=== PATIENT | female | born 1970 | race Caucasian/White ===

== ENCOUNTER 2016-11-14 09:24 | Outpatient (CLI) | payer MEDICAID ==
[~2016-11-14] VITALS: Ht 162.6 cm; Wt 73.9 kg
[~2016-11-14 09:24] MED LIST: BEN50 PO; HC1C30 TOP; IBUP-1542 PO
[2016-11-14 09:42] VITALS: Ht 162.6 cm; Wt 73.9 kg
[2016-11-14] MEDS ORDERED: PRENAT PO (09:46)
[2016-11-14] MEDS ORDERED: GLYB1.252 PO (09:46)
[2016-11-14] MEDS ORDERED: METF500T4 PO (09:46)
[2016-11-14 10:11] LABS: ADD SCAN DIFF NO
[2016-11-14 10:15] LABS: ADD UMIC YES; URINE BILIRUBIN (Dip) NEGATIVE (NEGATIVE); URINE BLOOD (Dip) TRACE (NEGATIVE); URINE COLOR LT. YELLOW (YELLOW); URINE GLUCOSE (Dip) NEGATIVE (NEGATIVE); URINE KETONES (Dip) NEGATIVE (NEGATIVE); URINE LEUKOCYTE ESTERASE (Dip) NEGATIVE (NEGATIVE); URINE NITRITE (Dip) NEGATIVE (NEGATIVE); URINE TOTAL PROTEIN (Dip) NEGATIVE (NEGATIVE); URINE UROBILINOGEN (Dip) 0.2 E.U./dL (0.1-1.0)
[2016-11-14 10:17] LABS: BASOPHILS % 0.3 % (0.0-2.0); EOSINOPHILS # 0.1 10^3/ul (0.0-0.5); EOSINOPHILS % 1.5 % (0.0-7.0); HEMATOCRIT 33.1 % (37.0-47.0); HEMOGLOBIN 10.5 g/dl (12.0-16.0); LYMPHOCYTES # 2.6 10^3/ul (0.8-2.9); LYMPHOCYTES % 29.4 % (15.0-51.0); MEAN CORPUSCULAR HEMOGLOBIN 25.7 pg (29.0-33.0); MEAN CORPUSCULAR HGB CONC 31.7 g/dl (32.0-37.0); MEAN CORPUSCULAR VOLUME 80.9 fl (82.0-101.0); MEAN PLATELET VOLUME 10.6 fl (7.4-10.4); MONOCYTE # 0.6 10^3/ul (0.3-0.9); MONOCYTES % 6.2 % (0.0-11.0); NEUTROPHIL # 5.5 10^3/ul (1.6-7.5); NEUTROPHILS % 61.6 % (39.0-77.0); PLATELET COUNT 233 10^3/UL (140-415); RED BLOOD COUNT 4.09 10^6/ul (4.20-5.40); RED CELL DISTRIBUTION WIDTH 16.6 % (11.5-14.5); WHITE BLOOD COUNT 8.9 10^3/ul (4.8-10.8)
[2016-11-14 10:23] LABS: BACTERIA,URINE MANY; SQUAMOUS EPITHELIAL CELL,UR MANY; URINE RBCS NONE SEEN /HPF (0)
[2016-11-14 10:33] LABS: INR 0.86; PARTIAL THROMBOPLASTIN TIME 26.9 Sec (25.0-35.0); PROTIME 11.7 Sec (12.2-14.2); PT RATIO 0.9
[2016-11-14 10:35] LABS: ALBUMIN 3.3 g/dl (3.3-4.9)
[2016-11-14 10:36] LABS: POTASSIUM 4.2 mmol/L (3.5-5.1)
[2016-11-14 10:38] LABS: ALBUMIN/GLOBULIN RATIO 0.97; BILIRUBIN,INDIRECT 0.1 mg/dl (0-1.1); BILIRUBIN,TOTAL 0.1 mg/dl (0.2-1.3); CREATININE 0.48 mg/dl (0.44-1.00); TOTAL PROTEIN 6.7 g/dl (6.1-8.1)
[2016-11-14 10:39] LABS: CALCIUM 8.9 mg/dl (8.4-10.2); URIC ACID 5.7 mg/dl (3.1-7.9)
--- NOTE | 2016-11-14 10:47 | RADRPT ---
PROCEDURE: OB ultrasound for biophysical profile CLINICAL INDICATION: labor TECHNIQUE: Multiple sonographic images of the pelvis were obtained. Transabdominal views of the g ravid uterus are available for review. The images were reviewed on a PACS workstation. COMPARISON: None FINDINGS: breathing movement = 2/2 tone = 2/2 motion = 2/2 CORRIE = 2/2 CORRIE = 14.4 cm Single live intrauterine with cardiac activity of 146 bpm. position is cephal ic. The placenta is posterior. IMPRESSION: 1. Single live intrauterine gestation. 2. Biophysical profile = 8/8. 3. CORRIE = 14.4 cm. RPTAT: HH .Lety Araujo MD, MD Date Time Electronically viewed and signed by .Lety Araujo MD, on 11/14/2016 10:47 .G/
--- NOTE | 2016-11-14 10:49 | RADRPT ---
PROCEDURE: US OB. CLINICAL INDICATION: Size and dates TECHNIQUE: Multiple sonographic images of the pelvis were obtained. Transabdominal imaging only w as performed. The images were reviewed on a PACS workstation. COMPARISON: No prior studies are available for comparison. FINDINGS: There is a single live intrauterine gestation. Cardiac activity is present with 132 beats per minut e. position is cephalic. Measurements were made in order to determine age. The results are as follows: BPD = 8.71 cm HC = 31.20 cm AC = 32.13 cm FL = 6.16 cm. Estimated gestational age of approximately 34 weeks 4 days. The estimated date of delivery is 12/22/2016. The EFW = 2512 g, 43.6 %ile. The placenta is posterior. There is no evidence for an abruption or placenta previa. There are no adnexal masses. IMPRESSION: 1. Single live intrauterine gestation of approximately 34 weeks 4 days, by ultrasound criteria. 2. The estimated date of delivery is 12/22/2016. 3. The estimated weight is 2512 g, 43.6 %ile. RPTAT: HH .Lety Araujo MD, Date Time Electronically viewed and signed by .Lety Araujo MD, on 11/14/2016 10:49 .G/
[2016-11-14] MEDS ORDERED: LACTATED RINGER'S 1,000 ML IV SCH (11:30)
--- NOTE | 2016-11-14 13:19 | RADRPT ---
PROCEDURE: OB ultrasound, cervical length ultrasound CLINICAL INDICATION: Pre-term labor. TECHNIQUE: Trans-vaginal imaging of the cervical canal was performed utilizing parsons-scale imaging. Sagittal and transverse images were obtained. The images were reviewed on a PACS workstation. COMPARISON: OB ultrasound 11/14/2016 FINDINGS: A few small Nabothian cysts are noted. The cervix is closed with a length of 3.16 cm. IMPRESSION: The cervix is closed with a length of 3.16 cm. RPTAT: AADD .Alexander Hurtado MD, MD Date Time Electronically viewed and signed by .Alexander Hurtado MD, MD on 11/14/2016 13:19 .B/
--- NOTE | 2016-11-14 15:20 | PN ---
DATE: SUBJECTIVE: Patient is a 46-year-old, 34 weeks, with elevation of blood pressure. Patient has no c omplaints. OBJECTIVE: Vital signs are stable. Patient at 130s/80s. Exam is within normal limits. Vital sign s within normal limits. LAB WORK: Ultrasound within normal limits. ASSESSMENT: This is a 46-year-old with mildly elevated blood pressure. Patient is stable. , patient will be discharged home. 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 Dictated By: AMALIA LOPEZ MD /NTS Conf#: [id number] DID#: [id number]
== END 2016-11-14 14:52 | disposition home or self-care (01) ==
LOC: OBT 09:24 → L-D 09:25 → OBT 14:52
PROVIDERS: ATTEND Obstetrics & Gynecology
DX: O26.893 Other specified pregnancy related conditions, third trimester (principal); R03.0 Elevated blood-pressure reading, without diagnosis of hypertension; O60.03 Preterm labor without delivery, third trimester; Z3A.34 34 weeks gestation of pregnancy
CPT/HCPCS: 36415; 76815; 76817; 76818; 80053; 81001; 82947; 84560; 85025; 85384; 85610; 85730; J7120; Z7500; 81003; G0463

== ENCOUNTER 2016-11-24 10:18 | Outpatient (CLI) | payer MEDICAID ==
[~2016-11-24] VITALS: Ht 160 cm; Wt 73.8 kg
[~2016-11-24 10:18] MED LIST changes: -BEN50 PO; +GLYB1.252 PO; -HC1C30 TOP; -IBUP-1542 PO; +METF500T4 PO; +PRENAT PO
[2016-11-24 10:25] VITALS: BP 130/75; PULSE 81; RESP 16; Ht 160 cm; Wt 73.8 kg
--- NOTE | 2016-11-24 13:42 | TRIAGE ---
OB Triage Datetime Report Generated by CPN: 11/24/2016 13:42 Datetime: 11/24/2016 13:00 Labor Evaluation Frequency: OCCAS Monitor Mode: External Duration (sec)2399: 60-100 Quality: Mild Pattern: Normal: <= 5 Contractions in 10 Minutes Resting Tone [place]: Relaxed Heart Rate FHR Baseline Rate: 130 Monitor Mode: External US FHR Baseline Changes: No Baseline Change Variability: Moderate 6-25 bpm Accelerations: 15X15 Decelerations: None Category: Category I Datetime: 11/24/2016 12:00 Labor Evaluation Frequency: OCCAS Monitor Mode: External Duration (sec)2399: 50-120 Quality: Mild Pattern: Normal: <= 5 Contractions in 10 Minutes Resting Tone [place]: Relaxed Heart Rate FHR Baseline Rate: 135 Monitor Mode: External US FHR Baseline Changes: No Baseline Change Variability: Moderate 6-25 bpm Accelerations: 15X15 Decelerations: None Category: Category I Datetime: 11/24/2016 10:59 Labor Evaluation Frequency: 2 NOTED Monitor Mode: External Duration (sec)2399: 60-90 Pattern: Normal: <= 5 Contractions in 10 Minutes Resting Tone [place]: Relaxed Contraction Comments: PT DENIES ANY YEIMI'S Heart Rate FHR Baseline Rate: 130 Monitor Mode: External US FHR Baseline Changes: No Baseline Change Variability: Moderate 6-25 bpm Accelerations: 15X15 Decelerations: None Category: Category I Datetime: 11/24/2016 10:37 Stage of : OB Triage Bedside Blood Glucose: 109 Datetime: 11/24/2016 10:23 Assessment Type: Triage Maternal Assessment Level of Consciousness: Fully Conscious DTR's/Clonus: DTRs 2+; No Clonus Headache: Denies Blurred Vision: No Respiratory Effort: Unlabored; Regular Rhythm; Equal Expansion Breath Sounds, Left: Clear and Equal Breath Sounds, Right: Clear and Equal Nausea/Vomiting: Denies RUQ Epigastric Pain: Denies Lower Extremities Edema: None Degree: None Upper Extremities Edema: None Degree: None Facial Edema: None Fall Risk Assessment History of Falling: (0) No Secondary Diagnosis: (0) No Ambulatory Aid: (0) Bedrest/Nurse Assist IV Therapy: (0) No Gait: (0) Normal/Bedrest/Immobile Mental Status: (0) Oriented to Own Ability Fall Score: 0 Fall Risk Score Definition: No Risk: No action required Datetime: 11/24/2016 10:21 Time of Arrival: 11/24/2016 10:10 EGA: 36.2 Arrived By: Ambulatory Arrived From: Dr. Elder Chief Complaint: CAME FROM NST DUE TO CATEGORY 2 STRIP. NON REACTIVE AND FASTING BLODD SUGAR OF 19 7 Movement: Present Contractions: Denies/Absent Rupture of Membranes: Denies Vaginal Bleeding: None Vaginal Discharge: Denies Recent Sexual Intercouse: Denies Abdominal Trauma: Not Applicable Patient Complaints: Other Time Provider Notified: 11/24/2016 10:46 Provider Notified: [facility] Initial Plan: NST/OBSERVATION Datetime: 11/14/2016 14:38 Labor Evaluation Frequency: OCCAS Monitor Mode: External Duration (sec)2399: 60-80 Quality: Mild Pattern: Normal: <= 5 Contractions in 10 Minutes Resting Tone [place]: Relaxed Heart Rate FHR Baseline Rate: 135 Monitor Mode: External US Variability: Moderate 6-25 bpm Accelerations: 10X10 Decelerations: None Category: Category I Pain Assessment Pain Scale: 0 Pain Presence: None/Denies Pain Type: N/A Pain Goal: 3 Pain Relief Measures: Comfort Measures Datetime: 11/14/2016 14:34 Stage of : OB Triage Datetime: 11/14/2016 13:17 Labor Evaluation Frequency: 0 Monitor Mode: External Resting Tone [place]: Relaxed Heart Rate FHR Baseline Rate: 135 Monitor Mode: External US Variability: Moderate 6-25 bpm Decelerations: None Category: Category I Pain Assessment Pain Scale: 0 Pain Presence: None/Denies Pain Type: N/A Pain Goal: 3 Pain Relief Measures: Comfort Measures Datetime: 11/14/2016 11:38 Labor Evaluation Frequency: 12-15 Monitor Mode: External Duration (sec)2399: 60-70 Quality: Mild Pattern: Normal: <= 5 Contractions in 10 Minutes Resting Tone [place]: Relaxed Contraction Comments: DENIES FEELING Heart Rate FHR Baseline Rate: 135 Monitor Mode: External US Variability: Moderate 6-25 bpm Accelerations: 10X10 Decelerations: None Category: Category I Pain Assessment Pain Scale: 0 Pain Presence: None/Denies Pain Type: N/A Pain Goal: 3 Pain Relief Measures: Comfort Measures Datetime: 11/14/2016 11:19 Stage of : OB Triage Datetime: 11/14/2016 10:24 Labor Evaluation Frequency: 10-12 Monitor Mode: External Duration (sec)2399: 70-80 Quality: Mild Pattern: Normal: <= 5 Contractions in 10 Minutes Resting Tone [place]: Relaxed Heart Rate FHR Baseline Rate: 130 Monitor Mode: External US Variability: Moderate 6-25 bpm Accelerations: 10X10 Decelerations: None Category: Category I Pain Assessment Pain Scale: 0 Pain Presence: None/Denies Pain Type: N/A Pain Goal: 3 Pain Relief Measures: Comfort Measures Datetime: 11/14/2016 09:38 Stage of : OB Triage Assessment Type: Triage Maternal Assessment Level of Consciousness: Fully Conscious DTR's/Clonus: DTRs 2+; No Clonus Headache: Denies Blurred Vision: No Respiratory Effort: Unlabored; Regular Rhythm; Equal Expansion Breath Sounds, Left: Clear and Equal Breath Sounds, Right: Clear and Equal Nausea/Vomiting: Denies RUQ Epigastric Pain: Denies Lower Extremities Edema: None Degree: None Upper Extremities Edema: None Degree: None Facial Edema: None Temperature Route: Axillary Fall Risk Assessment History of Falling: (0) No Secondary Diagnosis: (0) No Ambulatory Aid: (0) Bedrest/Nurse Assist IV Therapy: (0) No Gait: (0) Normal/Bedrest/Immobile Mental Status: (0) Oriented to Own Ability Fall Score: 0 Fall Risk Score Definition: No Risk: No action required Labor Evaluation Frequency: 0 Monitor Mode: External Resting Tone [place]: Relaxed Heart Rate FHR Baseline Rate: 125 Monitor Mode: External US Variability: Moderate 6-25 bpm Decelerations: None Category: Category I Pain Assessment Pain Scale: 0 Pain Presence: None/Denies Pain Type: N/A Pain Goal: 3 Pain Relief Measures: Comfort Measures Datetime: 11/14/2016 09:36 Time of Arrival: 11/14/2016 09:25 EGA: 34.6 Arrived By: Ambulatory Arrived From: Other Unit in Hospital Chief Complaint: FROM NST TO R/O PTL AND PIH, DENIES BLEEDING OR LEAKING OF FLUID Movement: Present Contractions: Denies/Absent Rupture of Membranes: Denies Vaginal Bleeding: None Vaginal Discharge: Denies Recent Sexual Intercouse: Denies Abdominal Trauma: Not Applicable Patient Complaints: Headache Time Provider Notified: 11/14/2016 11:19 Provider Notified: [facility] Initial Plan: MONITOR, BPP, PIH PANEL, EFW
--- NOTE | 2016-11-25 00:56 | NSTRPT ---
NST Information Datetime Report Generated by CPN: 11/25/2016 00:56 Datetime: 11/24/2016 08:17 NST Information EGA: 36.2 Test Number: 10 Time on Monitor: 11/24/2016 08:41 Time off Monitor: 11/24/2016 09:41 NST Duration (Min): 60 Reason for NST: Diabetes Mellitus; Other Reason for NST Other: A2DM Test and Monitor Explained: Monitor Explained; Test Explained; Verbalized Understanding; Breastfee ding Info Given Temp : 98.1 Pulse: 76 Resp: 18 SBP: 126 DBP: 86 Test Evaluation NST Interventions: PO Hydration; Food Given; Reposition Patient Patient States Movement: Present Contraction Frequency: 0 FHR Baseline : 135 Variability: Minimal - <=5bpm Accelerations: 15X15 Decelerations: Variable FHR Category: Category II NST Results: Questionable Provider Notified: Dr Mccullough Comments: To u/s. CORRIE 15.4cm. TRANSVERSE. FBS 198. Pt states she has a cold and all familiy member s at home are sick. c/o headache. 914-Report called to Dr Schultz, recommends ext efm. 919-Report to Dr Mccullough, inc Dr Schultz's rec ommendation. Order received to send to triage. 931-Report to Jonathan, in Triage. POC explained t o pt, states understanding and denies further questions at this time. 45-Pt to triage, with follo w up NST appt. Electronically Signed By E-Signature: with User ID: [id number] Datetime: 11/21/2016 08:28 NST Information EGA: 35.6 NST Duration (Min): 32 Datetime: 11/18/2016 08:39 NST Information EGA: 35.3 NST Duration (Min): 31 Datetime: 11/14/2016 08:19 NST Information EGA: 34.6 NST Duration (Min): 101 Datetime: 11/11/2016 10:31 NST Information EGA: 34.3 NST Duration (Min): 28 Datetime: 11/07/2016 08:39 NST Information EGA: 33.6 NST Duration (Min): 32 Datetime: 11/04/2016 10:14 NST Information EGA: 33.3 NST Duration (Min): 51 Datetime: 11/01/2016 08:59 NST Information EGA: 33.0 NST Duration (Min): 22 Datetime: 10/28/2016 10:21 NST Information EGA: 32.3 NST Duration (Min): 23 Datetime: 10/25/2016 09:03 NST Information EGA: 32.0 Datetime: 10/25/2016 08:56 NST Duration (Min): 35
--- NOTE | 2016-11-25 00:59 | NSTRPT ---
NST Information Datetime Report Generated by CPN: 11/25/2016 00:59 Datetime: 11/18/2016 08:39 Electronically Signed By E-Signature: with User ID: [id number]
== END 2016-11-24 13:41 | disposition home or self-care (01) ==
LOC: OBT 10:18 → L-D 10:19 → OBT 13:41
PROVIDERS: ATTEND Obstetrics & Gynecology
DX: O24.419 Gestational diabetes mellitus in pregnancy, unspecified control (principal); O09.513 Supervision of elderly primigravida, third trimester; Z3A.36 36 weeks gestation of pregnancy
CPT/HCPCS: 82962; Z7500; G0463

== ENCOUNTER 2016-12-02 23:35 | Outpatient (CLI) | payer MEDICAID ==
[~2016-12-02] VITALS: Ht 157.5 cm; Wt 74.2 kg
[2016-12-03 00:14] VITALS: Ht 157.5 cm; Wt 74.2 kg
[2016-12-03 00:15] VITALS: BP 152/95; PULSE 71; RESP 20
[2016-12-03 01:34] LABS: ADD SCAN DIFF NO
[2016-12-03 01:41] LABS: BASOPHILS % 0.3 % (0.0-2.0); EOSINOPHILS # 0.1 10^3/ul (0.0-0.5); EOSINOPHILS % 1.4 % (0.0-7.0); HEMATOCRIT 33.3 % (37.0-47.0); HEMOGLOBIN 10.7 g/dl (12.0-16.0); LYMPHOCYTES # 3.4 10^3/ul (0.8-2.9); LYMPHOCYTES % 38.8 % (15.0-51.0); MEAN CORPUSCULAR HEMOGLOBIN 25.8 pg (29.0-33.0); MEAN CORPUSCULAR HGB CONC 32.1 g/dl (32.0-37.0); MEAN CORPUSCULAR VOLUME 80.4 fl (82.0-101.0); MEAN PLATELET VOLUME 10.4 fl (7.4-10.4); MONOCYTE # 0.5 10^3/ul (0.3-0.9); MONOCYTES % 6.1 % (0.0-11.0); NEUTROPHIL # 4.6 10^3/ul (1.6-7.5); NEUTROPHILS % 52.4 % (39.0-77.0); PLATELET COUNT 250 10^3/UL (140-415); RED BLOOD COUNT 4.14 10^6/ul (4.20-5.40); RED CELL DISTRIBUTION WIDTH 16.9 % (11.5-14.5); WHITE BLOOD COUNT 8.8 10^3/ul (4.8-10.8)
[2016-12-03 01:50] LABS: INR 0.83; PROTIME 11.4 Sec (12.2-14.2); PT RATIO 0.9
[2016-12-03 01:51] LABS: PARTIAL THROMBOPLASTIN TIME 28.1 Sec (25.0-35.0)
[2016-12-03 01:54] LABS: URINE BLOOD (Dip) POC Trace-intact (NEGATIVE)
[2016-12-03 02:28] LABS: ALBUMIN 3.6 g/dl (3.3-4.9)
[2016-12-03 02:29] LABS: POTASSIUM 3.9 mmol/L (3.5-5.1)
[2016-12-03 02:31] LABS: ALBUMIN/GLOBULIN RATIO 0.94; CREATININE 0.56 mg/dl (0.44-1.00); TOTAL PROTEIN 7.4 g/dl (6.1-8.1)
[2016-12-03 02:32] LABS: URIC ACID 6.4 mg/dl (3.1-7.9)
[2016-12-03] MEDS ORDERED: ACET325T33 PO (03:00)
--- NOTE | 2016-12-03 06:55 | TRIAGE ---
OB Triage Datetime Report Generated by CPN: 12/03/2016 06:55 Datetime: 12/03/2016 03:07 Stage of : OB Triage Labor Evaluation Frequency: Irregular Monitor Mode: External Duration (sec)2399: 40-130 Quality: Mild Pattern: Normal: <= 5 Contractions in 10 Minutes Resting Tone [place]: Relaxed Heart Rate FHR Baseline Rate: 130 Monitor Mode: External US Variability: Moderate 6-25 bpm Accelerations: 15X15 Decelerations: None Category: Category I Pain Assessment Pain Scale: 0 Pain Presence: None/Denies Pain Type: N/A Pain Assessment Comments: Pt resting comfortably. Denies pain at this time. Datetime: 12/03/2016 03:05 Stage of : OB Triage Datetime: 12/03/2016 02:00 Stage of : OB Triage Labor Evaluation Frequency: Irregular Monitor Mode: External Duration (sec)2399: 50-120 Quality: Mild Pattern: Normal: <= 5 Contractions in 10 Minutes Resting Tone [place]: Relaxed Heart Rate FHR Baseline Rate: 125 Monitor Mode: External US Variability: Moderate 6-25 bpm Accelerations: 15X15 Decelerations: None Category: Category I Datetime: 12/03/2016 01:00 Stage of : OB Triage Labor Evaluation Frequency: Irregular Monitor Mode: External Duration (sec)2399: 50-140 Quality: Mild Pattern: Normal: <= 5 Contractions in 10 Minutes Resting Tone [place]: Relaxed Heart Rate FHR Baseline Rate: 130 Monitor Mode: External US FHR Baseline Changes: No Baseline Change Variability: Moderate 6-25 bpm Accelerations: 15X15 Decelerations: None Category: Category I Datetime: 12/03/2016 00:58 Stage of : OB Triage Datetime: 12/03/2016 00:05 Vaginal Exam Dilatation (cms): 0.0 Effacement (%): 0 Station: -4 Exam By: RAF Nevarez Membrane Status: Intact Vaginal Bleeding: None Cervix, Consistency: Firm Cervix, Position: Posterior Datetime: 12/03/2016 00:00 Stage of : OB Triage Labor Evaluation Frequency: Irritability _ uc's Monitor Mode: External Duration (sec)2399: 20-90 Quality: Mild Pattern: Normal: <= 5 Contractions in 10 Minutes Resting Tone [place]: Relaxed Heart Rate FHR Baseline Rate: 130 Monitor Mode: External US Variability: Minimal - Undetectable to <=5 bpm Decelerations: None Category: Category II Datetime: 12/02/2016 23:55 Bedside Blood Glucose: 88 Datetime: 12/02/2016 23:45 Stage of : OB Triage Assessment Type: Triage Maternal Assessment Level of Consciousness: Fully Conscious DTR's/Clonus: DTRs 2+; No Clonus Headache: Frontal Blurred Vision: No Respiratory Effort: Unlabored; Regular Rhythm; Equal Expansion Breath Sounds, Left: Clear and Equal Breath Sounds, Right: Clear and Equal Nausea/Vomiting: Denies RUQ Epigastric Pain: Denies Lower Extremities Edema: None Degree: None Upper Extremities Edema: None Degree: None Facial Edema: None Temperature Route: Oral Fall Risk Assessment History of Falling: (0) No Secondary Diagnosis: (0) No Ambulatory Aid: (0) Bedrest/Nurse Assist IV Therapy: (0) No Gait: (0) Normal/Bedrest/Immobile Mental Status: (0) Oriented to Own Ability Fall Score: 0 Fall Risk Score Definition: No Risk: No action required Pain Assessment Pain Scale: 4 Pain Presence: Intermittent Pain Type: Cramping Pain Location: Abdomen Pain Relief Measures: Comfort Measures Datetime: 12/02/2016 23:43 Time of Arrival: 12/02/2016 23:31 EGA: 37.3 Arrived By: Wheelchair Arrived From: Home Chief Complaint: BS at home 433 UCs [id number] Movement: Present Contractions: Irregular Time Contractions Began: 12/02/2016 20:00 Contractions: [id number] Rupture of Membranes: Denies Vaginal Bleeding: None Vaginal Discharge: Present Abdominal Trauma: Not Applicable Patient Complaints: Contractions; Cramping Time Provider Notified: 12/03/2016 00:58 Provider Notified: [facility] Initial Plan: EFM x2, check BS, VE Datetime: 11/24/2016 10:23 Fall Score: 0 Fall Risk Score Definition: No Risk: No action required Datetime: 11/24/2016 10:21 EGA: 36.2 Datetime: 11/14/2016 09:38 Fall Score: 0 Fall Risk Score Definition: No Risk: No action required Datetime: 11/14/2016 09:36 EGA: 34.6
--- NOTE | 2017-02-10 20:14 | QN ---
Documentation Comment 37 wks, r/o labor, blood sugar check MARLA BARR MD Feb 10, 2017 20:14
== END 2016-12-03 03:16 | disposition home or self-care (01) ==
LOC: OBT 23:35 → L-D 23:37 → OBT 12-03 03:16
PROVIDERS: ATTEND Obstetrics & Gynecology
DX: O26.893 Other specified pregnancy related conditions, third trimester (principal); Z3A.37 37 weeks gestation of pregnancy
CPT/HCPCS: 80053; 81003; 82962; 84560; 85025; 85610; 85730; Z7500; G0463

== ENCOUNTER 2016-12-03 19:09 | Outpatient (CLI) | payer MEDICAID ==
[~2016-12-03] VITALS: Ht 160 cm; Wt 74.3 kg
[~2016-12-03 19:09] MED LIST changes: +ACET325T33 PO
[2016-12-03 20:47] VITALS: BP 122/81; PULSE 87; RESP 18
--- NOTE | 2016-12-03 20:48 | PN ---
Date/Time of Note Date/Time of Note DATE: 12/03/16 TIME: 20:35 OB Subjective Subjective Subjective The patient is 37 weeks+ 3 days of gestation with gestational diabetes type 2 on metformin and glyburide Patient presents for follow up on elevated blood pressures. she was seen for the same complaint yesterday (BPs 152/95 147/96). 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
--- NOTE | 2016-12-03 23:01 | TRIAGE ---
OB Triage Datetime Report Generated by CPN: 12/03/2016 23:01 Datetime: 12/03/2016 20:56 Stage of : OB Triage Frequency: X3 Monitor Mode: External Duration (sec)2399: 60-90 Quality: Mild Resting Tone [employer]: Relaxed FHR Baseline Rate: 130 Monitor Mode: External US Variability: Moderate 6-25 bpm Accelerations: 15X15 Decelerations: None Category: Category I Pain Scale: 0 Pain Presence: None/Denies Pain Type: N/A Datetime: 12/03/2016 20:51 Stage of : OB Triage Datetime: 12/03/2016 19:33 Assessment Type: Triage Level of Consciousness: Fully Conscious DTR's/Clonus: DTRs 2+; No Clonus Headache: Denies Blurred Vision: No Respiratory Effort: Unlabored Breath Sounds, Left: Clear and Equal Breath Sounds, Right: Clear and Equal Nausea/Vomiting: Denies RUQ Epigastric Pain: Denies Lower Extremities Edema: None Degree: None Upper Extremities Edema: None Degree: None Facial Edema: None History of Falling: (0) No Secondary Diagnosis: (15) Yes (Annotations: A2DM ON METFORMIN AND GLYBURIDE) Ambulatory Aid: (0) Bedrest/Nurse Assist IV Therapy: (0) No Gait: (0) Normal/Bedrest/Immobile Mental Status: (0) Oriented to Own Ability Fall Score: 15 Fall Risk Score Definition: No Risk: No action required Datetime: 12/03/2016 19:25 Time of Arrival: 12/03/2016 19:05 EGA: 37.4 Arrived By: Ambulatory Arrived From: Home Chief Complaint: F/U HBPs Movement: Present Contractions: Denies/Absent Rupture of Membranes: Denies Vaginal Bleeding: None Vaginal Discharge: Denies Recent Sexual Intercouse: Denies Abdominal Trauma: Not Applicable Patient Complaints: None Initial Plan: VS, EFM, bp STUDIES Datetime: 12/03/2016 02:55 Stage of : OB Triage
== END 2016-12-03 21:25 | disposition home or self-care (01) ==
LOC: OBT 19:09 → L-D 19:10 → OBT 21:25
PROVIDERS: ATTEND Obstetrics & Gynecology
DX: O13.3 Gestational [pregnancy-induced] hypertension without significant proteinuria, third trimester (principal); O24.415 Gestational diabetes mellitus in pregnancy, controlled by oral hypoglycemic drugs; O09.523 Supervision of elderly multigravida, third trimester; Z3A.37 37 weeks gestation of pregnancy
CPT/HCPCS: G0463

== ENCOUNTER 2016-12-05 10:54 | Inpatient (IN) | payer MEDICAID ==
[~2016-12-05] VITALS: Ht 160 cm; Wt 73.0 kg
[2016-12-05] MEDS ORDERED: LIDOCAINE 1% (MPF) 30 ML INJ INJ PRN (11:30)
[2016-12-05] MEDS ORDERED: METHYLERGONOVINE 0.2 MG INJ IM PRN (11:30)
[2016-12-05] MEDS ORDERED: OXYTOCIN 30 UNITS/LR 500 ML IV SCH ×2 (11:30)
[2016-12-05] MEDS ORDERED: IBUPROFEN 600 MG TAB PO PRN (11:30)
[2016-12-05] MEDS ORDERED: MISOPROSTOL 200 MCG TAB PR PRN (11:30)
[2016-12-05] MEDS ORDERED: OXYTOCIN 30 UNITS/LR 500 ML IV PRN (11:30)
[2016-12-05] MEDS ORDERED: CARBOPROST 250 MCG INJ IM PRN (11:30)
[2016-12-05] MEDS ORDERED: BUTORPHANOL 2 MG INJ IV PRN (11:30)
[2016-12-05 11:41] VITALS: Ht 160 cm; Wt 73.0 kg
[2016-12-05 11:42] VITALS: BP 152/89; PULSE 61; RESP 16
[2016-12-05 11:45] LABS: ADD SCAN DIFF NO
[2016-12-05] MEDS ORDERED: LACTATED RINGER'S 1,000 ML IV PRN (12:00)
[2016-12-05 12:12] LABS: BASOPHILS % 0.4 % (0.0-2.0); EOSINOPHILS # 0.1 10^3/ul (0.0-0.5); EOSINOPHILS % 0.6 % (0.0-7.0); HEMOGLOBIN 10.3 g/dl (12.0-16.0); LYMPHOCYTES # 3.2 10^3/ul (0.8-2.9); LYMPHOCYTES % 34.5 % (15.0-51.0); MEAN CORPUSCULAR HEMOGLOBIN 25.4 pg (29.0-33.0); MEAN CORPUSCULAR HGB CONC 31.2 g/dl (32.0-37.0); MEAN CORPUSCULAR VOLUME 81.3 fl (82.0-101.0); MONOCYTE # 0.7 10^3/ul (0.3-0.9); MONOCYTES % 7.3 % (0.0-11.0); NEUTROPHIL # 5.1 10^3/ul (1.6-7.5); NUCLEATED RED BLOOD CELLS% 0.3 /100WBC (0.0-0.0); PLATELET COUNT 239 10^3/UL (140-415); RED BLOOD COUNT 4.06 10^6/ul (4.20-5.40); RED CELL DISTRIBUTION WIDTH 17.1 % (11.5-14.5); WHITE BLOOD COUNT 9.3 10^3/ul (4.8-10.8)
[2016-12-05 12:15] LABS: ALBUMIN 3.5 g/dl (3.3-4.9)
[2016-12-05 12:16] LABS: POTASSIUM 4.3 mmol/L (3.5-5.1)
[2016-12-05 12:18] LABS: CREATININE 0.55 mg/dl (0.44-1.00)
[2016-12-05 12:19] LABS: CALCIUM 8.9 mg/dl (8.4-10.2); URIC ACID 5.7 mg/dl (3.1-7.9)
[2016-12-05 13:00] LABS: INR 0.86; PARTIAL THROMBOPLASTIN TIME 27.6 Sec (25.0-35.0); PROTIME 11.7 Sec (12.2-14.2); PT RATIO 0.9
[2016-12-05] MEDS ORDERED: MAGNESIUM SULFATE 20 GM/500 ML 500 ML IV SCH (13:17)
[2016-12-05] MEDS ORDERED: MAGNESIUM SULFATE 4 GM/100 ML 100 ML ONE (13:21)
[2016-12-05] MEDS: DEXTROSE 5%-LR 1,000 ML IV SCH ×2 (13:26→19:10)
[2016-12-05] MEDS: LACTATED RINGER'S 1,000 ML IV SCH ×4 (13:26→19:10)
[2016-12-05] MEDS ORDERED: MAGNESIUM SULFATE 4 GM/100 ML 100 ML IV SCH (13:30)
[2016-12-05] MEDS: MAGNESIUM SULFATE 20 GM/500 ML 500 ML IV SCH ×2 (13:51→23:12)
[2016-12-05] MEDS ORDERED: DINOPROSTONE 10 MG VAG SUPP VAG ONE (14:30)
[2016-12-05 14:46] LABS: ADD UMIC NO; URINE BILIRUBIN (Dip) NEGATIVE (NEGATIVE); URINE BLOOD (Dip) NEGATIVE (NEGATIVE); URINE COLOR LT. YELLOW (YELLOW); URINE GLUCOSE (Dip) NEGATIVE (NEGATIVE); URINE KETONES (Dip) NEGATIVE (NEGATIVE); URINE LEUKOCYTE ESTERASE (Dip) NEGATIVE (NEGATIVE); URINE NITRITE (Dip) NEGATIVE (NEGATIVE); URINE TOTAL PROTEIN (Dip) NEGATIVE (NEGATIVE); URINE UROBILINOGEN (Dip) 0.2 E.U./dL (0.1-1.0)
[2016-12-05] MEDS ORDERED: AMPICILLIN 2 GM/NS (PMX) 100 ML ONE (14:56)
[2016-12-05] MEDS ORDERED: AMPICILLIN 2 GM/NS (PMX) 100 ML IV ONE (15:00)
[2016-12-05] MEDS: AMPICILLIN 1 GM/NS (PMX) 50 ML IV SCH ×2 (18:47→23:11)
[2016-12-06] MEDS: AMPICILLIN 1 GM/NS (PMX) 50 ML IV SCH ×5 (02:57→18:53)
[2016-12-06] MEDS: LACTATED RINGER'S 1,000 ML IV SCH ×4 (03:10→11:10)
[2016-12-06] MEDS: DEXTROSE 5%-LR 1,000 ML IV SCH ×4 (03:10→18:51)
[2016-12-06] MEDS ORDERED: DINOPROSTONE 10 MG VAG SUPP VAG ONE ×2 (04:00→18:30)
[2016-12-06] MEDS: ACETAMINOPHEN 325 MG TAB PO PRN ×2 (04:03→09:10)
[2016-12-06] MEDS: MAGNESIUM SULFATE 20 GM/500 ML 500 ML IV SCH (09:21)
[2016-12-06] MEDS ORDERED: LACTATED RINGER'S 1,000 ML IV SCH (12:46)
[2016-12-06 13:03] LABS: ADD SCAN DIFF NO
[2016-12-06 13:10] LABS: BASOPHILS % 0.4 % (0.0-2.0); EOSINOPHILS % 0.2 % (0.0-7.0); HEMATOCRIT 34.8 % (37.0-47.0); HEMOGLOBIN 10.9 g/dl (12.0-16.0); LYMPHOCYTES # 2.4 10^3/ul (0.8-2.9); LYMPHOCYTES % 23.1 % (15.0-51.0); MEAN CORPUSCULAR HEMOGLOBIN 25.1 pg (29.0-33.0); MEAN CORPUSCULAR HGB CONC 31.3 g/dl (32.0-37.0); MEAN CORPUSCULAR VOLUME 80.2 fl (82.0-101.0); MEAN PLATELET VOLUME 11.3 fl (7.4-10.4); MONOCYTE # 0.6 10^3/ul (0.3-0.9); MONOCYTES % 5.6 % (0.0-11.0); NEUTROPHIL # 7.4 10^3/ul (1.6-7.5); NUCLEATED RED BLOOD CELLS% 0.2 /100WBC (0.0-0.0); PLATELET COUNT 274 10^3/UL (140-415); RED BLOOD COUNT 4.34 10^6/ul (4.20-5.40); RED CELL DISTRIBUTION WIDTH 17.2 % (11.5-14.5); WHITE BLOOD COUNT 10.5 10^3/ul (4.8-10.8)
[2016-12-06 13:33] LABS: ALBUMIN 3.6 g/dl (3.3-4.9); POTASSIUM 3.6 mmol/L (3.5-5.1)
[2016-12-06 13:35] LABS: BILIRUBIN,INDIRECT 0.1 mg/dl (0-1.1); BILIRUBIN,TOTAL 0.1 mg/dl (0.2-1.3); CREATININE 0.62 mg/dl (0.44-1.00)
[2016-12-06 13:36] LABS: CALCIUM 6.3 mg/dl (8.4-10.2); TOTAL PROTEIN 7.2 g/dl (6.1-8.1); URIC ACID 7.1 mg/dl (3.1-7.9)
[2016-12-06] MEDS ORDERED: MAGNESIUM SULFATE 20 GM/500 ML 500 ML IV SCH (18:14)
[2016-12-06] MEDS ORDERED: ONDANSETRON 4 MG INJ IV PRN ×2 (18:30→22:30)
[2016-12-06] MEDS ORDERED: CEFAZOLIN 2 GM/50 ML (PMX) 50 ML IVPB ONE (20:30)
[2016-12-06] MEDS ORDERED: LACTATED RINGER'S 250 ML IV ONE (20:45)
[2016-12-06] MEDS ORDERED: CITRIC ACID/NA CITRATE 30 ML CUP ONE (20:50)
[2016-12-06] MEDS ORDERED: ONDANSETRON 4 MG INJ IV ONE (21:00)
[2016-12-06] MEDS ORDERED: CITRIC ACID/NA CITRATE 30 ML CUP PO ONE (21:00)
[2016-12-06] MEDS ORDERED: FENTAnyl 50 MCG/ML VIAL ONE (21:08)
[2016-12-06] MEDS ORDERED: morphine SULFATE/PF (10 MG/10 ML) INJ ONE (21:08)
[2016-12-06] MEDS ORDERED: METOCLOPRAMIDE 10 MG INJ ONE (21:24)
[2016-12-06] MEDS ORDERED: EPHEDrine SULFATE 50 MG/5 ML SYG ONE (21:40)
[2016-12-06] MEDS ORDERED: ALBUMIN HUMAN 5% 250 ML ONE (21:54)
[2016-12-06] MEDS ORDERED: DIPHENHYDRAMINE 50 MG INJ IV PRN (22:30)
[2016-12-06] MEDS ORDERED: PROCHLORPERAZINE 10 MG INJ IV PRN (22:30)
[2016-12-06] MEDS ORDERED: KETOROLAC 30 MG INJ IV PRN (22:30)
[2016-12-06] MEDS ORDERED: NALOXONE (0.4 MG/ML) INJ IV PRN (22:30)
[2016-12-06] MEDS ORDERED: HYDROmorphONE 1 MG/ML SYG IV PRN ×2 (22:30)
--- NOTE | 2016-12-06 23:40 | HP ---
Date/Time of Note Date/Time of Note DATE: 12/06/16 TIME: 23:23 OB - History Hx of Present Free Text/Dictation 46 y.o at 38weeks was admitted for induction for PIH, she was placed on magnesium sulfate and cervidil was placed after vaginal exam which was closed and long high. after 3x cervidil was given and no change on cervical exam and patient was c/ o severe headahe and became lethargic blood pressure is 150's/high 8o's nagnesium level increased tto reduce the dosage of magnesium sulfaate to 1.5gm and delivery is remote primary [id number] section was chosen to be of mode of delivery due to failed incduction and induced hypertension. informed consent was obtained and prepared for primary section add patient is also A2DM Past Family/Social History * Past Medical, Surgical, Family and Obstetric Histories reviewed from chart. OB Admission Exam Vital Signs Vital Signs Vital Signs Date Time Temp Pulse Resp B/P Pulse Ox O2 Delivery O2 Flow Rate FiO2 12/05/16 11:42 97.8 61 16 152/89 Physical Exam HEENT: WNL Heart: Rhythm Normal Lungs: Clear, Equal Abdomen: WNL Extremities: Normal Reflexes: Normal Cervical Dilatation: None Effacement: 0% Station: Ballotable Membranes: Intact Amniotic Fluid: Unevaluable Heart Rate: 130's Accelerations: Accelerations Present Decelerations: No Decelerations Varibility: Minimum Contractions on Admission: < 5 Minutes Apart Intensity: Moderate Last 72 hourBlood Glucose Bedside Glucose - 72 Hours Test 12/05/16 14:53 12/05/16 18:44 12/05/16 23:15 12/06/16 03:00 Bedside Glucose 83mg/dL (70-220) 85mg/dL (70-220) 90mg/dL (70-220) 99mg/dL (70-220) Test 12/06/16 07:01 12/06/16 10:55 12/06/16 15:03 12/06/16 18:46 Bedside Glucose 105mg/dL (70-220) 101mg/dL (70-220) 111mg/dL (70-220) 93mg/dL (70-220) Last 72 hours Lab Results CBC & BMP 12/05/16 11:34 12/06/16 06:05 12/06/16 12:23 Liver Function Test 12/05/16 11:34 12/06/16 12:23 Alanine Aminotransferase (ALT/SGPT) 31 59 Albumin 3.5 3.6 Alkaline Phosphatase 210 H 251 H Aspartate Amino Transf (AST/SGOT) 29 47 H Direct Bilirubin 0.00 0.00 Total Protein 7.0 7.2 Magnesium Level Test 12/05/16 18:10 12/06/16 00:35 12/06/16 06:03 12/06/16 12:23 Magnesium Level 4.9 H 6.0 *H 6.2 *H 6.6 *H Test 12/06/16 19:00 Magnesium Level 6.5 *H OB Assessment/Plan Reason for admission: other ( induced hypertension and A2DM) Other Assessment: failed induction Plan: Section SHAWNEE BROWER MD Dec 06, 2016 23:37
[2016-12-07] VITALS (17 sets, daily range): BP systolic 125–150; BP diastolic 70–89; PULSE 67–77; RESP 16–20
--- NOTE | 2016-12-07 00:18 | OPR ---
DATE OF OPERATION: NO DICTATION Dictated By: PARAS GARCIA/LIVIER Conf#: [id number] DID#: [id number]
--- NOTE | 2016-12-07 00:21 | OPR ---
DATE OF OPERATION: 12/06/2016 PREOPERATIVE DIAGNOSIS: 38 weeks 1 day with -induced hypertension, A2 diabetes, and failure of induction. POSTOPERATIVE DIAGNOSES: 1. , 38 weeks 1 day with -induced hypertension A2 diabetes and failure of inducti on. 2. Delivered a normal male infant. OPERATION PROCEDURE: Primary low transverse section. ANESTHESIA: Spinal. ANESTHESIOLOGIST: Dr. Carlos. OBSTETRICS TECH: Ms. Hoyt SURGEON: Denisse Amaot MD ESTIMATED BLOOD LOSS: Approximately 600 mL. PROCEDURE: Under proper induction of spinal anesthesia, the patient was placed in the supine positi on. Abdominal wall was prepped and draped in usual aseptic manner. A Pfannenstiel incision was mad e. The incision carried down through the subcutaneous tissue to the anterior recti tissue, which wa s incised transversely in length of the incision. Fascial flap was created by blunt and sharp disse ction of tendinous attachments and 2 rectus muscles were split and peritoneal cavity was entered. L ow portion of the uterus was exposed. The incision transversely made above the uterovesical reflect ion, reached the amniotic membrane, ruptured, revealed clear amniotic fluid, and normal male was born from the left occiput transverse position. Mouth and nose were cleaned and cord was clampe d and cut. The cord was delayed clamped and cut, [facility]. Cord blood was obtained. Placenta was removed manually. Cavity was completely explored. Uterine incision was closed using #1 chromic catgut in continuous manner and second layer using 0 c hromic catgut including the uterine serosa. No bleeder was noted. All the blood was removed from b oth gutters. The incisional site was checked, which was intact. Parietal peritoneum was closed usi ng 0 chromic catgut in continuous manner, muscle closed with 0 chromic catgut in continuous manner a fter the sponge count taken, which was correct. Then, the fascia was closed with #1 Vicryl in mellissa nuous manner in 2 segments and subcutaneous tissue irrigated with water. This layer was approximate d with a 2-0 plain in continuous manner. Skin closed with Insorb. Pressure dressing applied. Annamarie mated blood loss approximately 600 mL. The patient withstood procedure and was sent to [facility] in stable condition. Dictated By: DENISSE GARCIA/LIVIER Conf#: [id number] [facility]#: [id number]
[2016-12-07] MEDS ORDERED: MISOPROSTOL 200 MCG TAB PR PRN (01:30)
[2016-12-07] MEDS ORDERED: LANOLIN 7 GM TUBE TOP PRN (01:30)
[2016-12-07] MEDS ORDERED: METHYLERGONOVINE 0.2 MG INJ IM PRN (01:30)
[2016-12-07] MEDS: LACTATED RINGER'S 1,000 ML IV SCH ×3 (01:30→21:52)
[2016-12-07] MEDS ORDERED: ZOLPIDEM 5 MG TAB PO PRN (01:30)
[2016-12-07] MEDS ORDERED: CARBOPROST 250 MCG INJ IM PRN (01:30)
[2016-12-07] MEDS ORDERED: ONDANSETRON 4 MG INJ IV PRN (01:30)
[2016-12-07] MEDS ORDERED: OXYTOCIN 30 UNITS/LR 500 ML IV PRN (01:30)
[2016-12-07] MEDS: OXYTOCIN 30 UNITS/LR 500 ML IV SCH ×6 (01:43→21:30)
[2016-12-07] MEDS: MAGNESIUM SULFATE 20 GM/500 ML 500 ML IV SCH ×2 (03:18→22:00)
--- NOTE | 2016-12-07 06:45 | OPPN ---
Date/Time of Note Date/Time of Note DATE: 12/07/16 TIME: 06:43 Anesthesia Follow up Anesthesia Follow up Last documented vital signs Vital Signs Date Time Temp Pulse Resp B/P Pulse Ox O2 Delivery O2 Flow Rate FiO2 12/07/16 06:30 98.7 70 18 125/79 Room Air 12/07/16 03:37 94 21 Respiratory function: WNL Cardiovascular function: WNL Comments POD 1 s/p C/S, s/p Duramorph, tolerating po, denies pain, doing well, baby at bedside, VSS, A&Ox3. ADI DICKSON MD Dec 07, 2016 06:45
[2016-12-07 10:13] LABS: ADD SCAN DIFF NO
[2016-12-07 10:17] LABS: BASOPHILS % 0.2 % (0.0-2.0); EOSINOPHILS % 0.2 % (0.0-7.0); HEMATOCRIT 27.1 % (37.0-47.0); HEMOGLOBIN 8.7 g/dl (12.0-16.0); LYMPHOCYTES # 2.6 10^3/ul (0.8-2.9); LYMPHOCYTES % 24.3 % (15.0-51.0); MEAN CORPUSCULAR HEMOGLOBIN 25.9 pg (29.0-33.0); MEAN CORPUSCULAR HGB CONC 32.1 g/dl (32.0-37.0); MEAN CORPUSCULAR VOLUME 80.7 fl (82.0-101.0); MEAN PLATELET VOLUME 10.4 fl (7.4-10.4); MONOCYTE # 0.7 10^3/ul (0.3-0.9); MONOCYTES % 6.4 % (0.0-11.0); NEUTROPHIL # 7.2 10^3/ul (1.6-7.5); NEUTROPHILS % 68.4 % (39.0-77.0); PLATELET COUNT 196 10^3/UL (140-415); RED BLOOD COUNT 3.36 10^6/ul (4.20-5.40); RED CELL DISTRIBUTION WIDTH 17.1 % (11.5-14.5); WHITE BLOOD COUNT 10.5 10^3/ul (4.8-10.8)
[2016-12-07 10:37] LABS: ALBUMIN 2.9 g/dl (3.3-4.9); POTASSIUM 3.7 mmol/L (3.5-5.1)
[2016-12-07 10:39] LABS: BILIRUBIN,INDIRECT 0.1 mg/dl (0-1.1); BILIRUBIN,TOTAL 0.1 mg/dl (0.2-1.3); CREATININE 0.6 mg/dl (0.44-1.00)
[2016-12-07 10:40] LABS: ALBUMIN/GLOBULIN RATIO 0.96; CALCIUM 6.3 mg/dl (8.4-10.2); TOTAL PROTEIN 5.9 g/dl (6.1-8.1)
[2016-12-07] MEDS: SENNA/DOCUSATE NA (8.6MG/50MG) TAB PO SCH (21:00)
[2016-12-07] MEDS ORDERED: OXYCODONE/ACETAMINOPHEN (5/325) TAB PO PRN (21:20)
[2016-12-07] MEDS ORDERED: DIPHENHYDRAMINE 50 MG INJ IV PRN (21:20)
[2016-12-08] MEDS: IBUPROFEN 600 MG TAB PO SCH ×5 (00:18→23:35)
[2016-12-08] MEDS: OXYTOCIN 30 UNITS/LR 500 ML IV SCH ×2 (01:30→05:30)
[2016-12-08 03:53] VITALS: BP 120/72; PULSE 77; RESP 19
[2016-12-08] MEDS: OXYCODONE/ACETAMINOPHEN (5/325) TAB PO PRN ×2 (07:08→14:52)
[2016-12-08 08:00] VITALS: BP 137/75; PULSE 75; RESP 18
[2016-12-08] MEDS: SENNA/DOCUSATE NA (8.6MG/50MG) TAB PO SCH ×2 (09:28→21:25)
[2016-12-08 12:02] VITALS: BP 123/64; PULSE 70; RESP 19
--- NOTE | 2016-12-08 12:55 | PN ---
Date/Time of Note Date/Time of Note DATE: 12/08/16 TIME: 12:54 OB Subjective Subjective Subjective Post day 2 Afebrile vital signs stable, abdomen soft good bowel sounds patient had normal bowel movement uterus firm lochia normal incision dry extremities negative ambulation encouraged plan of possible a.m. discharge discussed with the patient. GEORGIE DEXTER MD Dec 08, 2016 12:55
[2016-12-08 16:15] VITALS: BP 126/73; PULSE 77; RESP 18
[2016-12-08 20:00] VITALS: BP 121/66; PULSE 78; RESP 18
[2016-12-09 03:58] VITALS: BP 136/73; PULSE 66; RESP 18
[2016-12-09] MEDS: IBUPROFEN 600 MG TAB PO SCH ×2 (05:17→11:52)
[2016-12-09 08:35] VITALS: BP 131/72; PULSE 73; RESP 19
[2016-12-09] MEDS ORDERED: DIPHTH/TET/ACEL PERTUSS (ADULT) 0.5 ML VIAL IM* ONE (09:00)
[2016-12-09] MEDS: OXYCODONE/ACETAMINOPHEN (5/325) TAB PO PRN ×2 (09:01→11:06)
[2016-12-09] MEDS: SENNA/DOCUSATE NA (8.6MG/50MG) TAB PO SCH (09:01)
--- NOTE | 2016-12-09 10:12 | DS ---
Date/Time of Note Date/Time of Note DATE: 12/09/16 TIME: 10:08 Discharge Summary Admission/Discharge Info Admit Date/Time Dec 05, 2016 at 10:54 Discharge Date/Time December 09, 2016 at 1010 Final Diagnosis 38 weeks complicated with PIH and GDM, failed induction Patient Condition: Good Procedures Primary Hx of Present Illness 38 weeks complicated with -induced hypertension gestational diabetes failed induction Hospital Course Satisfactory Home Meds Reported Medications Acetaminophen* (Tylenol*) 325 Mg Tablet, 650 MG PO, TAB 12/03/16 Glyburide* (Glyburide*) 1.25 Mg Tablet, 1.25 MG PO QHS, #30 TAB 11/14/16 Metformin* (Glucophage*) 500 Mg Tab, 500 MG PO QHS, #30 TAB 11/14/16 Multivit/Min/Fol Ac/Iron/Pren* ( S*) 1 Tab Tab, 1 TAB PO DAILY, TAB 11/14/16 Follow-up Plan To be seen at the clinic for post follow-up in 1 week patient given instructions for care of the wound at home recommended follow-up in 1 week Pending Labs Laboratory Tests Test 12/08/16 10:53 12/08/16 15:32 12/08/16 21:01 12/09/16 08:35 Bedside Glucose 121mg/dL (70-220) 154mg/dL (70-220) 128mg/dL (70-220) 90mg/dL (70-220) GEORGIE DEXTER MD Dec 09, 2016 10:12
--- NOTE | 2016-12-09 10:13 | PD.PPDC ---
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 Discharge Instruction Condition Patient Condition: Good Diet Diet: Resume Regular Diet Activity/Restrictions Activity: Normal Activity May Shower Restrictions: No Exercising Follow-up Follow-up with Physician: 1, Week/Weeks Provider Information: Appointment clinic in 1 week Return to clinic for [facility] Instructions: Fever greater than 101 Worsening abdominal pain Excessive Vaginal Bleeding More than 2 pads per hour Unable to tolerate diet OB Instructions: Breast Tenderness Blurried Vision Headache Surgical Instructions: Incisional Drainage Incisional Redness GEORGIE DEXTER MD Dec 09, 2016 10:13
--- NOTE | 2016-12-12 21:41 | NSTRPT ---
NST Information Datetime Report Generated by CPN: 12/12/2016 21:40 Datetime: 12/05/2016 08:45 NST Information EGA: 37.6 Test Number: 13 Time on Monitor: 12/05/2016 09:02 Time off Monitor: 12/05/2016 10:22 NST Duration (Min): 80 Reason for NST: Diabetes Mellitus; Other Reason for NST Other: A2DM Test and Monitor Explained: Monitor Explained; Test Explained; Verbalized Understanding Pulse: 65 Resp: 18 SBP: 157 DBP: 84 Test Evaluation NST Interventions: PO Hydration; Reposition Patient; Acoustic Stimulation Patient States Movement: Present Contraction Frequency: x3, mild FHR Baseline : 135 Variability: Moderate 6-25bpm Accelerations: 15X15 Decelerations: None FHR Category: Category I NST Results: Reactive Comments: To u/s, CORRIE 13.6, cephalic FBS 84 1020-NST/CORRIE _ VS reviewed by Dr Schultz, inc pt c/o H/A _ epigastric pain, recommends delivery. Re port called to Dr Jamel, orders received for adm to L_D for induction. POC explained to pt states u nderstanding and denies further questions at this time. Report called to Nicole in L_D. 1036-Pt to L_D Electronically Signed By E-Signature: with User ID: [id number] Datetime: 12/02/2016 10:05 NST Information EGA: 37.3 NST Duration (Min): 32 Datetime: 11/28/2016 08:23 NST Information EGA: 36.6 NST Duration (Min): 34 Datetime: 11/24/2016 08:17 NST Information EGA: 36.2 NST Duration (Min): 60 Datetime: 11/21/2016 08:28 NST Information EGA: 35.6 NST Duration (Min): 32 Datetime: 11/18/2016 08:39 NST Information EGA: 35.3 NST Duration (Min): 31 Datetime: 11/14/2016 08:19 NST Information EGA: 34.6 NST Duration (Min): 101 Datetime: 11/11/2016 10:31 NST Information EGA: 34.3 NST Duration (Min): 28 Datetime: 11/07/2016 08:39 NST Information EGA: 33.6 NST Duration (Min): 32 Datetime: 11/04/2016 10:14 NST Information EGA: 33.3 NST Duration (Min): 51 Datetime: 11/01/2016 08:59 NST Information EGA: 33.0 NST Duration (Min): 22 Datetime: 10/28/2016 10:21 NST Information EGA: 32.3 NST Duration (Min): 23 Datetime: 10/25/2016 09:03 NST Information EGA: 32.0 Datetime: 10/25/2016 08:56 NST Duration (Min): 35
== END 2016-12-09 13:35 | disposition home or self-care (01) | DRG 766 ==
LOC: L-D 10:54 → PP1 12-07 02:09 → EDSTATUS 12-20 10:53
PROVIDERS: ADMIT Obstetrics & Gynecology; ATTEND Obstetrics & Gynecology
PROC: 10D00Z1 Extraction of Products of Conception, Low, Open Approach (ICD-10-PCS; principal; 2016-12-06 21:00)
DX: O99.214 Obesity complicating childbirth (principal); E66.9 Obesity, unspecified; Z68.28 Body mass index [BMI] 28.0-28.9, adult; O24.429 Gestational diabetes mellitus in childbirth, unspecified control; O62.0 Primary inadequate contractions; Z3A.38 38 weeks gestation of pregnancy; Z37.0 Single live birth
CPT/HCPCS: 80053; 81003; 82962; 83735; 84560; 85025; 85384; 85610; 85730; 86592; 86885; 86900; 86901; 90715; 94760; 99464; J0290; J0690; J1885; J2274; J2405; J2590; J2765; J3010; J3475; J7120; J7121; P9045